=== PATIENT | female | born 1945 | race Caucasian/White ===

== ENCOUNTER 2018-06-19 03:50 | Emergency (ER) | payer MEDICARE, MEDICAID ==
[~2018-06-19] VITALS: Ht 170.2 cm; Wt 55.0 kg
[2018-06-19 05:04] LABS: BASOPHILS % (AUTO) 0.3 % (0-1); EOSINOPHILS % (AUTO) 0 % (0-6); HEMATOCRIT 41.3 % (35.0-45.0); HEMOGLOBIN 13.8 g/dl (12.0-16.0); LYMPHOCYTES # (AUTO) 1.3 X10'3 (1.1-4.8); LYMPHOCYTES % (AUTO) 12.2 % (21-51); MEAN CORPUSCULAR HEMOGLOBIN 30.9 PG (27.0-31.0); MEAN CORPUSCULAR HGB CONC 33.5 % (33.0-36.5); MEAN CORPUSCULAR VOLUME 92.4 FL (78-98); MEAN PLATELET VOLUME 8.6 FL (7.4-10.4); MONOCYTES # (AUTO) 0.8 X10'3 (0-0.9); MONOCYTES % (AUTO) 6.9 % (2-12); NEUTROPHILS # (AUTO) 8.8 X10'3 (1.8-7.7); NEUTROPHILS % (AUTO) 80.6 % (42-75); PLATELET COUNT 175 X10'3 (140-440); RED BLOOD COUNT 4.47 X10'6 (4.20-5.60); RED CELL DISTRIBUTION WIDTH 13.6 % (11.5-14.5)
[2018-06-19 05:11] LABS: ALANINE AMINOTRANSFERASE 29 U/L (12-78); ALBUMIN 3.5 G/DL (3.4-5.0); ALBUMIN/GLOBULIN RATIO 1.3 (1.1-1.5); ALKALINE PHOSPHATASE 131 IU/L (46-116); ANION GAP 9 (8-16); ASPARTATE AMINO TRANSFERASE 27 U/L (10-37); BILIRUBIN,TOTAL 0.9 MG/DL (0.1-1.0); BLOOD UREA NITROGEN 16 MG/DL (7-18); BUN/CREATININE RATIO 21.6 (6.6-38.0); CALCIUM 8.2 MG/DL (8.5-10.1); CHLORIDE 100 MMOL/L (99-107); CREATININE 0.74 MG/DL (0.40-0.90); GLUCOSE 105 MG/DL (70-104); SODIUM 135 MMOL/L (135-145); TOTAL CARBON DIOXIDE 26.3 MMOL/L (24-32); TOTAL PROTEIN 6.2 G/DL (6.4-8.2); eGFR 77 ML/MIN
[2018-06-19 05:21] LABS: CLARITY,URINE SLIGHTLY CLOUDY (Clear); GLUCOSE, URINE NEGATIVE (Neg); KETONES,URINE NEGATIVE (Neg); LEUKOCYTE ESTERASE ,URINE LARGE (Neg); NITRITES, URINE NEGATIVE (Neg); OCCULT BLOOD,URINE LARGE (Neg); PH,URINE 6.5 (4.8-8.0); PROTEIN,URINE 30 mg/dl (Neg); UROBILINOGEN,URINE 0.2 E.U/dL (0.2-1.0)
[2018-06-19 05:23] LABS: UA COLLECTION TYPE FOLEY CATH
[2018-06-19 05:24] LABS: COLOR,URINE DARK YELLOW (Yellow)
[2018-06-19] MEDS ORDERED: cephalexin 250mg capsule PO ONE (05:25)
[2018-06-19 05:28] LABS: RBC,URINE TNTC /HPF (0-2); SQUAMOUS EPITHELIAL CELL,UR FEW /LPF (FEW); WBC CLUMPS,URINE FEW /HPF (NEGATIVE); WBC,URINE TNTC /HPF (0-4)
[2018-06-19 05:29] LABS: BACTERIA,URINE 2+ /HPF (Neg)
[2018-06-19] MEDS ORDERED: CEPH500C5 PO (05:43)
[2018-06-19] MEDS ORDERED: cephalexin 250 MG/5 ML oral suspension PO ONE (05:55)
[2018-06-19 06:34] VITALS: BP 132/71
== END 2018-06-19 07:22 | disposition home or self-care (01) ==
LOC: ER 03:50
DX: N39.0 Urinary tract infection, site not specified (principal); E03.9 Hypothyroidism, unspecified; Z85.51 Personal history of malignant neoplasm of bladder; Z88.8 Allergy status to other drugs, medicaments and biological substances
CPT/HCPCS: 36415; 51702; 80053; 81001; 85025; 87077; 87088; 87186; 99284

== ENCOUNTER 2018-10-19 15:09 | Emergency (ER) | payer MEDICARE, MEDICAID ==
[~2018-10-19] VITALS: Ht 170.2 cm; Wt 60.0 kg
[~2018-10-19 15:09] MED LIST: CEPH500C5 PO
[2018-10-19] MEDS ORDERED: LORazepam 1 MG tablet PO ONE (15:40)
[2018-10-19 16:07] LABS: BASOPHILS % (AUTO) 0.5 % (0-1); EOSINOPHILS % (AUTO) 0.6 % (0-6); HEMATOCRIT 43.2 % (35.0-45.0); HEMOGLOBIN 14.2 g/dl (12.0-16.0); LYMPHOCYTES # (AUTO) 2.3 X10'3 (1.1-4.8); LYMPHOCYTES % (AUTO) 40.4 % (21-51); MEAN CORPUSCULAR HEMOGLOBIN 30.4 PG (27.0-31.0); MEAN CORPUSCULAR HGB CONC 32.8 g/dL (33.0-36.5); MEAN CORPUSCULAR VOLUME 92.8 FL (78-98); MEAN PLATELET VOLUME 8.9 FL (7.4-10.4); MONOCYTES # (AUTO) 0.6 X10'3 (0-0.9); MONOCYTES % (AUTO) 9.7 % (2-12); NEUTROPHILS # (AUTO) 2.8 X10'3 (1.8-7.7); NEUTROPHILS % (AUTO) 48.8 % (42-75); PLATELET COUNT 199 X10'3 (140-440); RED BLOOD COUNT 4.66 X10'6 (4.20-5.60); RED CELL DISTRIBUTION WIDTH 13.8 % (11.5-14.5); WHITE BLOOD COUNT 5.8 X10'3 (4.5-11.0)
[2018-10-19 16:29] LABS: ALANINE AMINOTRANSFERASE 33 U/L (12-78); ALBUMIN 3.6 G/DL (3.4-5.0); ALBUMIN/GLOBULIN RATIO 1.2 (1.1-1.5); ALKALINE PHOSPHATASE 133 IU/L (46-116); ANION GAP 6 (8-16); ASPARTATE AMINO TRANSFERASE 26 U/L (10-37); BILIRUBIN,TOTAL 0.3 MG/DL (0.1-1.0); BLOOD UREA NITROGEN 21 MG/DL (7-18); BUN/CREATININE RATIO 22.1 (6.6-38.0); CALCIUM 8.6 MG/DL (8.5-10.1); CHLORIDE 104 MMOL/L (99-107); CREATININE 0.95 MG/DL (0.40-0.90); ETHANOL < 0.010 GM/DL (0.0-0.010); GLUCOSE 89 MG/DL (70-104); MAGNESIUM 2.1 MG/DL (1.5-2.4); POTASSIUM 4.3 MMOL/L (3.5-5.1); SODIUM 138 MMOL/L (135-145); TOTAL CARBON DIOXIDE 28.1 MMOL/L (24-32); TOTAL PROTEIN 6.5 G/DL (6.4-8.2); eGFR 58 ML/MIN
[2018-10-19 17:17] VITALS: BP 125/75
--- NOTE | 2018-10-19 17:20 | NUR ---
PT CAME IN BY EMS. CALLING FRIENDS FOR A RIDE HOME. WILL CONTINUE TO MONITOR.
[2018-10-19 17:26] LABS: CLARITY,URINE CLEAR (Clear); COLOR,URINE YELLOW (Yellow); GLUCOSE, URINE NEGATIVE (Neg); KETONES,URINE NEGATIVE (Neg); LEUKOCYTE ESTERASE ,URINE NEGATIVE (Neg); NITRITES, URINE NEGATIVE (Neg); OCCULT BLOOD,URINE TRACE-INTACT (Neg); PH,URINE 6.5 (4.8-8.0); PROTEIN,URINE NEGATIVE (Neg); UROBILINOGEN,URINE 0.2 E.U/dL (0.2-1.0)
[2018-10-19 17:29] LABS: UA COLLECTION TYPE OTHER
[2018-10-19 17:34] LABS: URINE AMPHETAMINE SCREEN NEGATIVE (Neg); URINE BARBITUATE SCREEN NEGATIVE (Neg); URINE BENZODIAZEPINES SCREEN NEGATIVE (Neg); URINE CANNABINOID SCREEN NEGATIVE (Neg); URINE COCAINE SCREEN NEGATIVE (Neg); URINE METHADONE SCREEN NEGATIVE (Neg); URINE OPIATE SCREEN NEGATIVE (Neg); URINE PHENCYCLIDINE SCREEN NEGATIVE (Neg)
[2018-10-19 17:35] LABS: BACTERIA,URINE NONE SEEN /HPF (Neg); RBC,URINE 0-2 /HPF (0-2); WBC,URINE 0-4 /HPF (0-4)
[2018-10-19 17:36] LABS: SQUAMOUS EPITHELIAL CELL,UR FEW /LPF (FEW)
--- NOTE | 2018-10-19 17:40 | NUR ---
paged psychologist social to contact pt tomorrow.
== END 2018-10-20 | disposition home or self-care (01) ==
LOC: ER 10-20 02:04
DX: E86.0 Dehydration (principal); M62.838 Other muscle spasm; E03.9 Hypothyroidism, unspecified; Z60.2 Problems related to living alone; Z88.8 Allergy status to other drugs, medicaments and biological substances; Z79.899 Other long term (current) drug therapy
CPT/HCPCS: 36415; 80053; 80305; 80320; 81001; 83735; 84443; 85025; 85651; 93005; 99284

== ENCOUNTER 2020-11-06 17:52 | Emergency (ER) | payer MEDICARE, MEDICAID ==
[~2020-11-06] VITALS: Ht 167.6 cm; Wt 48.2 kg
[~2020-11-06 17:52] MED LIST changes: -CEPH500C5 PO; +LIDOcaine 1% 30ml preserv. free vial ONE
[2020-11-06] MEDS ORDERED: normal saline 1000ML IV soln IVB ONE (18:55)
[2020-11-06] MEDS ORDERED: LIDOcaine 1% W/epiNEPHrine 1:200,000 10ml vial IJ ONE (19:35)
[2020-11-06] MEDS ORDERED: LIDOcaine 1% 30ml preserv. free vial IJ STA ×2 (20:04→20:05)
[2020-11-06] MEDS ORDERED: magnesium 2GM in 50ml NS 50 ML IV ONE (20:05)
[2020-11-06 20:40] LABS: BASOPHILS % (AUTO) 0.6 % (0-1); EOSINOPHILS % (AUTO) 0.2 % (0-6); HEMATOCRIT 39.4 % (35.0-45.0); HEMOGLOBIN 13.1 g/dl (12.0-16.0); LYMPHOCYTES # (AUTO) 1.8 X10'3 (1.1-4.8); LYMPHOCYTES % (AUTO) 25.1 % (21-51); MEAN CORPUSCULAR HGB CONC 33.3 g/dL (33.0-36.5); MEAN CORPUSCULAR VOLUME 89.9 FL (78-98); MEAN PLATELET VOLUME 8.6 FL (7.4-10.4); MONOCYTES # (AUTO) 0.5 X10'3 (0-0.9); NEUTROPHILS # (AUTO) 4.8 X10'3 (1.8-7.7); NEUTROPHILS % (AUTO) 67.1 % (42-75); PLATELET COUNT 139 X10'3 (140-440); RED BLOOD COUNT 4.38 X10'6 (4.20-5.60); RED CELL DISTRIBUTION WIDTH 14.3 % (11.5-14.5); WHITE BLOOD COUNT 7.2 X10'3 (4.5-11.0)
[2020-11-06 20:56] LABS: ALANINE AMINOTRANSFERASE 64 U/L (12-78); ALBUMIN 3.3 G/DL (3.4-5.0); ALBUMIN/GLOBULIN RATIO 1.2 (1.1-1.5); ALKALINE PHOSPHATASE 150 IU/L (46-116); ANION GAP 11 (8-16); ASPARTATE AMINO TRANSFERASE 64 U/L (10-37); BILIRUBIN,TOTAL 0.3 MG/DL (0.1-1.0); BLOOD UREA NITROGEN 26 MG/DL (7-18); BUN/CREATININE RATIO 29.9 (6.6-38.0); CALCIUM 8.1 MG/DL (8.5-10.1); CHLORIDE 100 MMOL/L (99-107); CREATININE 0.87 MG/DL (0.40-0.90); GLUCOSE 96 MG/DL (70-104); POTASSIUM 4.6 MMOL/L (3.5-5.1); SODIUM 133 MMOL/L (135-145); TOTAL CARBON DIOXIDE 22.2 MMOL/L (24-32); eGFR 64 ML/MIN
[2020-11-06 21:50] VITALS: BP 157/83
== END 2020-11-06 21:40 | disposition home or self-care (01) ==
LOC: ER 17:52
DX: S01.91XA Laceration without foreign body of unspecified part of head, initial encounter (principal); R51.9 Headache, unspecified; E03.9 Hypothyroidism, unspecified; Z85.9 Personal history of malignant neoplasm, unspecified; Z60.2 Problems related to living alone; Z88.8 Allergy status to other drugs, medicaments and biological substances; W01.198A Fall on same level from slipping, tripping and stumbling with subsequent striking against other object, initial encounter; Y92.012 Bathroom of single-family (private) house as the place of occurrence of the external cause; Y93.89 Activity, other specified; Y99.8 Other external cause status
CPT/HCPCS: 12002; 36415; 70450; 72125; 80053; 85025; 96365; 99285; J2001; J3475; J7030; 96361

== ENCOUNTER 2021-11-10 12:50 | Emergency (ER) | payer MEDICARE, MEDICAID ==
[~2021-11-10] VITALS: Ht 165.1 cm; Wt 40.9 kg
--- NOTE | 2021-11-10 14:00 | NUR ---
pt requesting additional padding under head, pt's body is stiff and difficult to move. pt reports she had iodine in an avocado and is having an allergic reaction. pt states she has an allergic reaction every day, but rides it out. attached to monitors, vss.
[2021-11-10] MEDS ORDERED: THY15T PO (14:16)
[2021-11-10] MEDS ORDERED: MAGN250T11 PO (14:16)
[2021-11-10] MEDS ORDERED: ERGO400C PO (14:16)
[2021-11-10] MEDS ORDERED: ringers solution, lacted 1,000 ML IV ONE (14:40)
[2021-11-10] MEDS ORDERED: haloperidol lactate 5mg/ml inj IM ONE (14:50)
--- NOTE | 2021-11-10 15:00 | NUR ---
pt continues to remove o2 finger monitor, states she is allergic to it. re-oriented to monitors cables and leads, agreeable to have 02 monitor on finger.
[2021-11-10 15:18] LABS: BASOPHILS # (AUTO) 0.1 X10'3 (0-0.2); EOSINOPHILS % (AUTO) 0.7 % (0-6); HEMATOCRIT 44.2 % (35.0-45.0); HEMOGLOBIN 14.7 g/dl (12.0-16.0); LYMPHOCYTES # (AUTO) 1.7 X10'3 (1.1-4.8); LYMPHOCYTES % (AUTO) 32.1 % (21-51); MEAN CORPUSCULAR HEMOGLOBIN 29.8 PG (27.0-31.0); MEAN CORPUSCULAR HGB CONC 33.2 g/dL (33.0-36.5); MEAN CORPUSCULAR VOLUME 89.7 FL (78-98); MEAN PLATELET VOLUME 8.4 FL (7.4-10.4); MONOCYTES # (AUTO) 0.4 X10'3 (0-0.9); MONOCYTES % (AUTO) 7.6 % (2-12); NEUTROPHILS # (AUTO) 3.2 X10'3 (1.8-7.7); NEUTROPHILS % (AUTO) 58.6 % (42-75); PLATELET COUNT 188 X10'3 (140-440); RED BLOOD COUNT 4.93 X10'6 (4.20-5.60); RED CELL DISTRIBUTION WIDTH 14.6 % (11.5-14.5); WHITE BLOOD COUNT 5.4 X10'3 (4.5-11.0)
[2021-11-10 15:31] LABS: ALANINE AMINOTRANSFERASE 32 U/L (12-78); ALBUMIN 3.7 G/DL (3.4-5.0); ALBUMIN/GLOBULIN RATIO 1.2 (1.1-1.5); ALKALINE PHOSPHATASE 104 IU/L (46-116); ANION GAP 11 (8-16); BILIRUBIN,TOTAL 0.6 MG/DL (0.1-1.0); BLOOD UREA NITROGEN 24 MG/DL (7-18); CALCIUM 8.5 MG/DL (8.5-10.1); CHLORIDE 94 MMOL/L (99-107); GLUCOSE 82 MG/DL (70-104); SODIUM 129 MMOL/L (135-145); TOTAL CARBON DIOXIDE 24.2 MMOL/L (24-32); TOTAL PROTEIN 6.7 G/DL (6.4-8.2); eGFR 70 ML/MIN
[2021-11-10 15:39] LABS: MAGNESIUM 2.4 MG/DL (1.5-2.4)
[2021-11-10 15:41] LABS: ASPARTATE AMINO TRANSFERASE 32 U/L (10-37)
[2021-11-10 16:09] LABS: CLARITY,URINE CLEAR (Clear); COLOR,URINE YELLOW (Yellow); GLUCOSE, URINE NEGATIVE (Neg); KETONES,URINE NEGATIVE (Neg); LEUKOCYTE ESTERASE ,URINE NEGATIVE (Neg); NITRITES, URINE NEGATIVE (Neg); OCCULT BLOOD,URINE SMALL (Neg); PROTEIN,URINE NEGATIVE (Neg); UROBILINOGEN,URINE 0.2 E.U/dL (0.2-1.0)
[2021-11-10 16:11] LABS: UA COLLECTION TYPE STRAIGHT CATH
[2021-11-10 16:13] LABS: PHOSPHORUS 4.2 MG/DL (2.3-4.5)
[2021-11-10 16:14] LABS: SQUAMOUS EPITHELIAL CELL,UR FEW /LPF (FEW); TRANSITIONAL EPI CELLS,URINE FEW /HPF
[2021-11-10 16:15] LABS: BACTERIA,URINE FEW /HPF (Neg); RBC,URINE 0-2 /HPF (0-2); WBC,URINE 0-4 /HPF (0-4)
--- NOTE | 2021-11-10 17:15 | NUR ---
pt assisted to bsc with maximum assist, dr. hernández made aware. ok for d/c.
[2021-11-10 17:30] VITALS: BP 112/80
--- NOTE | 2021-11-10 17:47 | NUR ---
pt and visitor given instructions to call 911 for lift assist at home.
[2021-11-10] MEDS ORDERED: BACL-11 PO (18:05)
== END 2021-11-10 17:55 | disposition home or self-care (01) ==
LOC: ER 12:51
DX: E86.0 Dehydration (principal); E03.9 Hypothyroidism, unspecified; E87.1 Hypo-osmolality and hyponatremia; R41.82 Altered mental status, unspecified; M24.542 Contracture, left hand; M24.541 Contracture, right hand; K59.00 Constipation, unspecified; Z91.81 History of falling
CPT/HCPCS: 36415; 80053; 81001; 83735; 84100; 84300; 84443; 85025; 96360; 99284; J7120

== ENCOUNTER 2022-04-01 07:54 | Emergency (ER) | payer MEDICARE, MEDICAID ==
[~2022-04-01] VITALS: Ht 170.2 cm; Wt 94.0 kg
[~2022-04-01 07:54] MED LIST changes: +BACL-11 PO; +ERGO400C PO; -LIDOcaine 1% 30ml preserv. free vial ONE; +MAGN250T11 PO; +THY15T PO
--- NOTE | 2022-04-01 08:31 | NUR ---
BROTHER CIERRA [phone]
[2022-04-01 08:36] LABS: EOSINOPHILS % (AUTO) 0 % (0-6); HEMOGLOBIN 14.9 g/dl (12.0-16.0); LYMPHOCYTES # (AUTO) 0.6 X10'3 (1.1-4.8); RED BLOOD COUNT 4.88 X10'6 (4.20-5.60)
--- NOTE | 2022-04-01 08:36 | NUR ---
DON CALLED, JUST GOT HERE FROM [place], AND STATES"MCKINLEY IS IN PANIC MODE AND AFRAID WE ARE NOT GOING TO VISIT HER BEFORE WE LEAVE". STATES, "THIS IS BASICALLY HER NORM"
[2022-04-01 08:38] LABS: BASOPHILS % (AUTO) 0.3 % (0-1); HEMATOCRIT 43.5 % (35.0-45.0); LYMPHOCYTES % (AUTO) 9.9 % (21-51); MEAN CORPUSCULAR HEMOGLOBIN 30.6 PG (27.0-31.0); MEAN CORPUSCULAR HGB CONC 34.3 g/dL (33.0-36.5); MEAN CORPUSCULAR VOLUME 89.2 FL (78-98); MONOCYTES # (AUTO) 0.4 X10'3 (0-0.9); MONOCYTES % (AUTO) 6.3 % (2-12); NEUTROPHILS # (AUTO) 5.5 X10'3 (1.8-7.7); NEUTROPHILS % (AUTO) 83.5 % (42-75); PLATELET COUNT 136 X10'3 (140-440); RED CELL DISTRIBUTION WIDTH 13.5 % (11.5-14.5); WHITE BLOOD COUNT 6.5 X10'3 (4.5-11.0)
--- NOTE | 2022-04-01 09:00 | NUR ---
UP TO [facility] WITH 2 PERSON ASST. VOIDED X1 SLIGHT CLOUDY
[2022-04-01 09:13] LABS: CLARITY,URINE SLIGHTLY CLOUDY (Clear); COLOR,URINE YELLOW (Yellow); GLUCOSE, URINE NEGATIVE (Neg); KETONES,URINE TRACE mg/dl (Neg); LEUKOCYTE ESTERASE ,URINE SMALL (Neg); NITRITES, URINE NEGATIVE (Neg); OCCULT BLOOD,URINE MODERATE (Neg); PH,URINE 5.5 (4.8-8.0); PROTEIN,URINE TRACE mg/dl (Neg); UROBILINOGEN,URINE 0.2 E.U/dL (0.2-1.0)
[2022-04-01 09:15] LABS: UA COLLECTION TYPE CLN CATCH MIDSTREAM
[2022-04-01 09:20] LABS: SQUAMOUS EPITHELIAL CELL,UR MODERATE /LPF (FEW)
[2022-04-01 09:21] LABS: CELLULAR CAST 0-4 /LPF (NEGATIVE); COARSE GRANULAR CAST 0-3 /LPF (NEGATIVE)
[2022-04-01 09:22] LABS: HYALINE CASTS 0-3 /LPF (NEGATIVE); MUCUS STRANDS FEW /LPF (Neg)
[2022-04-01 09:24] LABS: WBC CLUMPS,URINE MANY /HPF (NEGATIVE)
[2022-04-01 09:25] LABS: TRANSITIONAL EPI CELLS,URINE MODERATE /HPF; WBC,URINE 30-50 /HPF (0-4)
[2022-04-01 09:26] LABS: YEAST FEW /HPF (NEGATIVE)
[2022-04-01 09:27] LABS: BACTERIA,URINE FEW /HPF (Neg)
[2022-04-01 09:54] LABS: TOTAL CELLS COUNTED 100
[2022-04-01 09:56] LABS: PLATELET ESTIMATE NORMAL; SMUDGE CELLS FEW
[2022-04-01 09:57] LABS: POIKILOCYTOSIS FEW
[2022-04-01 10:58] LABS: ALANINE AMINOTRANSFERASE 46 U/L (12-78); ALBUMIN 3.4 G/DL (3.4-5.0); ALBUMIN/GLOBULIN RATIO 1.1 (1.1-1.5); ALKALINE PHOSPHATASE 98 IU/L (46-116); ANION GAP 9 (8-16); ASPARTATE AMINO TRANSFERASE 74 U/L (10-37); BILIRUBIN,TOTAL 0.6 MG/DL (0.1-1.0); BLOOD UREA NITROGEN 21 MG/DL (7-18); BUN/CREATININE RATIO 23.6 (6.6-38.0); CALCIUM 8.1 MG/DL (8.5-10.1); CHLORIDE 93 MMOL/L (99-107); CREATININE 0.89 MG/DL (0.40-0.90); GLUCOSE 78 MG/DL (70-104); POTASSIUM 3.8 MMOL/L (3.5-5.1); SODIUM 128 MMOL/L (135-145); TOTAL CARBON DIOXIDE 25.8 MMOL/L (24-32); TOTAL PROTEIN 6.4 G/DL (6.4-8.2); eGFR 62 ML/MIN
[2022-04-01 11:58] LABS: MAGNESIUM 1.8 MG/DL (1.5-2.4)
[2022-04-01 12:13] LABS: APTT 37 SECONDS (22-32)
[2022-04-01 13:03] VITALS: BP 122/70
--- NOTE | 2022-04-01 13:20 | NUR ---
CALL PLACED TO PTS BROTHER DON, MESSAGE LEFT THAT PT IS READY FOR DC AND TO CALL US BACK
--- NOTE | 2022-04-01 15:23 | NUR ---
PT'S BROTHER CIERRA CALLED FOR PT UPDATE. HE WAS TOLD THAT A MESSAGE WAS LEFT FOR HIM STATING PT IS BEING DC AND WHEN COULD HE PICK PT UP. CIERRA STATES THAT HE NEVER GOT A MSG AND THAT HE HAS NO WAY OF GETTING PT HOME. CASE MGT PAGED FOR ASSISTANCE. CALL WAS MADE TO [facility] AND PT WILL BE TRANSPORTED HOME BY THEM WITH ETA OF 1800. PT'S BROTHER, CEIRRA, WAS CALLED AND A MESSAGE LEFT AND TO PHONE# IN PT'S CHART THAT THE PT WILL BE ARRIVING HOME AT APPROX 1830 AND THAT HE OR PT'S JACKER WILL NEED TO BE AT HOME TO RECEIVED THE PT.
--- NOTE | 2022-04-01 15:36 | NUR ---
Rec'd page requesting help for transport pt home. Attempted to call them back X 2 w/ no response. Pt has PHP and can use [facility] but unable to relay that info to them as they won't answer the phone.
--- NOTE | 2022-04-01 15:57 | NUR ---
PT'S BROTHER RETURNED CALL AND SOMEONE WILL BE HOME TO RECEIVED PT WHEN [facility] ARRIVES.
== END 2022-04-01 18:19 | disposition home or self-care (01) ==
LOC: ER 07:55
DX: R05.9 Cough, unspecified (principal); R06.02 Shortness of breath; R22.1 Localized swelling, mass and lump, neck; E03.9 Hypothyroidism, unspecified; Z88.8 Allergy status to other drugs, medicaments and biological substances; Z79.899 Other long term (current) drug therapy; Z79.1 Long term (current) use of non-steroidal anti-inflammatories (NSAID)
CPT/HCPCS: 36415; 71045; 80053; 81001; 83735; 83880; 84484; 85007; 85025; 85610; 85730; 87088; 93005; 99285